=== PATIENT | male | born 1995 | race Caucasian/White ===

== ENCOUNTER 2020-10-27 13:45 | Inpatient (IN) | payer MEDICAID, SELFPAY ==
[2020-10-27 13:53] VITALS: BP 139/91; PULSE 85; RESP 16; TEMP 36.8; O2SAT 99; BMI 22.1
--- NOTE | 2020-10-27 14:18 | PC.NURSE ---
pts belongings were placed in a hospital bag and sat int he copy room next to vertical flow
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
--- NOTE | 2020-10-27 15:08 | PC.NURSE ---
pt states that he can not urinate because I will not let him close the door and be by himself
[2020-10-27 15:11] LABS: Basophils % 0.3 %; Eosinophils # 0.1 10^3/uL (0.0-0.8); Eosinophils % 0.7 %; Hematocrit 47.3 % (42.0-52.0); Hemoglobin 15.7 g/dL (11.7-16.6); Lymphocytes # 1.9 10^3/uL (0.8-4.8); Lymphocytes % 16.3 %; Mean Corpuscular HGB Conc 33.2 g/dL (30.0-36.0); Mean Corpuscular Hemoglobin 29.2 pg (28.0-34.0); Mean Corpuscular Volume 87.9 fL (80-94); Mean Platelet Volume 10.7 fL (7.4-10.4); Monocytes # 0.8 10^3/uL (0.2-0.9); Monocytes % 6.5 %; Neutrophils # 8.82 10^3/uL (1.8-7.7); Neutrophils % 75.9 %; Nucleated Red Blood Cells % 0 %; Platelet Count 242 10^3/cmm (130-400); Red Blood Count 5.38 10^6/uL (4.1-5.3); White Blood Count 11.6 10^3/uL (4.0-10.0)
[2020-10-27 15:48] LABS: Alanine Aminotransferase 6 U/L (0-41); Albumin Level 4.6 g/dL (3.5-5.2); Alkaline Phosphatase 115 IU/L (40-130); Aspartate Amino Transferase 21 U/L (0-40); Blood Urea Nitrogen 7 mg/dL (6-20); Calcium 9.1 mg/dL (8.5-10.5); Carbon Dioxide 25 mmol/L (22-29); Chloride 106 mmol/L (98-107); Globulin 2.3 g/dL (1.3-4.6); Glomerular Filtration Rate 118.8 mL/min (90-130); Glucose 95 mg/dL (65-115); Osmolality Calculated 294 mOsm/kg (285-295); Sodium 143 mmol/L (136-145); Thyroid Stimulating Hormone 0.99 uIU/mL (0.27-4.20); Total Bilirubin 0.4 mg/dL (0.15-1.2); Total Protein 6.9 g/dL (6.6-8.7)
[2020-10-27 15:49] LABS: Acetaminophen < 5.0 ug/mL (10-30); Alcohol Level < 10 mg/dL (0-10); Salicylate < 0.3 mg/dL (3-10)
[2020-10-27 15:50] LABS: Anion Gap 15.7 (5-19); Potassium 3.7 mmol/L (3.5-5.1)
[2020-10-27 16:17] VITALS: BP 122/56; PULSE 78; RESP 17; TEMP 36.7; O2SAT 99
[2020-10-27 16:54] LABS: Amphetamines Screen Urine Negative (Negative); Barbiturates Screen Urine Negative (Negative); Benzodiazepines Screen Urine Positive (Negative); Cocaine Screen Urine Negative (Negative); Opiate Screen Urine Negative (Negative); PCP Screen Urine Negative (Negative); THC Screen Urine Positive (Negative)
[2020-10-27 17:26] VITALS: BP 141/87; PULSE 81; RESP 16; O2SAT 99
--- NOTE | 2020-10-27 17:55 | PC.NURSE ---
This is a 25-year-old male who was brought in by law enforcement on a 96-hour hold. The patient states that he has anger issues and he is mostly able to keep them under wraps but gets to the point that he describes as rage where he is unable to control it. He states that he is not a morning person and when his grandmother is trying to talk to him in the morning it gets him upset because he is unable to tell her to be quiet. He believes he has hormone imbalances especially his serotonin. He has insomnia, he has chronic thoughts of suicide but denies a plan. He states he is not currently suicidal. He denies any homicidal ideation. Patient + Benzos, and THC.
[2020-10-27] MEDS: nicotine 2 mg Gum BUCCAL ×2 (17:58→20:21)
[2020-10-27 20:32] VITALS: BP 119/68; PULSE 75; RESP 17; TEMP 37; O2SAT 99
[2020-10-27] MEDS: trazodone 50 mg Tablet PO ×2 (21:00→22:52)
[2020-10-27] MEDS: hyDROXYzine 25 mg Capsule 50 MG PO (22:52)
--- NOTE | 2020-10-27 23:00 | PC.NURSE ---
The patient has been unable to sleep. Second dose Trazodone 50 mg po given. Vistaril 50 mg po given for anxiety/restlessness.
[2020-10-28 06:00] VITALS: BP 85/48; PULSE 86; RESP 17; TEMP 36.5; O2SAT 96
[2020-10-28] MEDS: nicotine 2 mg Gum BUCCAL ×4 (10:37→21:32)
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
[2020-10-28 13:39] VITALS: BP 118/70; PULSE 89; RESP 15; TEMP 36.8; O2SAT 99
[2020-10-28 21:32] VITALS: BP 115/72
[2020-10-28] MEDS: cloNIDine 0.1 mg Tablet PO (21:32)
[2020-10-28] MEDS: hyDROXYzine 25 mg Capsule 50 MG PO (21:34)
[2020-10-28 22:00] VITALS: BP 115/72; PULSE 65; RESP 18; TEMP 37.1; O2SAT 98
[2020-10-28] MEDS: trazodone 50 mg Tablet PO (22:18)
[2020-10-29 06:00] VITALS: BP 96/57; PULSE 59; RESP 16; TEMP 37; O2SAT 98; BMI 22.1
[2020-10-29] MEDS: nicotine 2 mg Gum BUCCAL ×5 (08:43→21:57)
[2020-10-29 14:00] VITALS: BP 102/62; PULSE 58; RESP 16; TEMP 36.2; O2SAT 98
--- NOTE | 2020-10-29 17:13 | P.PN_ITS ---
Subjective NPU Subjective: Interval history: Compa presents today clonidine did not make him overly sleepy but did assisted him feeling calm and not worked up which did lead to him feeling sleeping came easier. We discussed the risks, benefits and alternatives of increasing the clonidine to twice daily dosing and he understood and agreed to proceed as is documented in this note. Mental Status Exam MSE Comments: This is a slender, diminutive white male with hospital scrubs on with adequate grooming and limited eye contact. No abnormal movements except for mild psychomotor retardation. Cooperative with exam in no acute distress. Speech was decreased rate and volume. Mood described as okay, affect congruent. Thought process organized. Thought content: Patient denied suicidal or homicidal ideation, there are no delusions reported noted, he denied any auditory or visual hallucinations. Attention and concentration were intact and memory appeared reliable but none were formally tested. He is alert and oriented x3. Insight and judgment appear fair and impulse control is limited. Vitals/I&O/Wt Last Vital Signs Temp 98.9 F 10/29/20 21:51 Pulse 117 H 10/29/20 21:51 Resp 18 10/29/20 21:51 BP 111/70 10/29/20 21:51 Pulse Ox 99 10/29/20 21:51 Weight last 48 hrs Weight 68.039 kg Data NPU : 10/27/20 15:00 10/27/20 15:00 A&P Additional A&P Information (1) Suicidal ideation: (2) Difficulty controlling anger: (3) Impulse control disorder, unspecified: (4) Depression: (5) Cannabis abuse: (6) Benzodiazepine abuse: Additional A&P Information This is a 25-year-old white male with a long history of trauma, grief, addiction with difficulty controlling his impulses and aggression who presents open to treatment. 1. Continue current medication. Increase clonidine to 0.1 mg p.o. twice daily. 2. Continue every 15 minute checks for safety. 3. Encourage individual, group and milieu therapies. 4. Encourage sober living treatment after discharge at the highest level of care to which he is willing to commit. Involuntary Hold Information 96 Hour Hold: 96 Hour Involuntary Admission: Yes Attestations NPU Medical Necessity Statement*: Inpatient hospitalization is medically necessary and the clinically appropriate intervention at this time. We will monitor medications and make changes as indicated. Likely length of stay 2-4 days. Coding Level of Care Code Acute Lead Refinery Supervisor for Pineda Rosas
[2020-10-29 21:45] VITALS: BP 111/70
[2020-10-29] MEDS: cloNIDine 0.1 mg Tablet PO (21:45)
[2020-10-29 21:51] VITALS: BP 111/70; PULSE 117; RESP 18; TEMP 37.2; O2SAT 99
[2020-10-29] MEDS: trazodone 50 mg Tablet PO (21:57)
[2020-10-30 06:00] VITALS: BP 115/65; PULSE 76; RESP 18; TEMP 36.9; O2SAT 99
[2020-10-30] MEDS: nicotine 2 mg Gum BUCCAL ×5 (07:50→20:25)
[2020-10-30 08:30] VITALS: BP 115/65
[2020-10-30] MEDS: cloNIDine 0.1 mg Tablet PO (08:30)
[2020-10-30 14:00] VITALS: BP 88/53; PULSE 55; RESP 16; TEMP 36.7; O2SAT 100
--- NOTE | 2020-10-30 14:42 | P.PN_ITS ---
Subjective NPU Subjective: Interval history: Compa presents today reporting things along fairly well in talking with his family and he feels that he will be safe to go home in the morning. He reports clonidine has really been helpful and allowing him to feel calmer and less prone to irritability. He reports he is sleeping a little better. Mental Status Exam MSE Comments: This is a slender, diminutive white male with hospital scrubs on with adequate grooming and limited eye contact. No abnormal movements. Cooperative with exam in no acute distress. Speech was more normal rate and volume. Mood described as better, affect congruent. Thought process organized. Thought content: Patient denied suicidal or homicidal ideation, there are no delusions reported noted, he denied any auditory or visual hallucinations. Attention and concentration were intact and memory appeared reliable but none were formally tested. He is alert and oriented x3. Insight and judgment appear fair and impulse control is limited, but improving. Vitals/I&O/Wt Last Vital Signs Temp 98.0 F 10/30/20 14:00 Pulse 55 L 10/30/20 14:00 Resp 16 10/30/20 14:00 BP 88/53 10/30/20 14:00 Pulse Ox 100 10/30/20 14:00 Weight last 48 hrs Weight 68.039 kg Data NPU : 10/27/20 15:00 10/27/20 15:00 A&P Additional A&P Information (1) Suicidal ideation: (2) Difficulty controlling anger: (3) Impulse control disorder, unspecified: (4) Depression: (5) Cannabis abuse: (6) Benzodiazepine abuse: Additional A&P Information This is a 25-year-old white male with a long history of trauma, grief, addiction with difficulty controlling his impulses and aggression who presents open to tr eatment. 1. Continue current medication. 2. Continue every 15 minute checks for safety. 3. Encourage individual, group and milieu therapies. 4. Encourage sober living treatment after discharge at the highest level of care to which he is willing to commit. 5. Likely plan for discharge tomorrow. Involuntary Hold Information 96 Hour Hold: 96 Hour Involuntary Admission: Yes Attestations NPU Medical Necessity Statement*: Inpatient hospitalization is medically necessary and the clinically appropriate intervention at this time. We will monitor medications and make changes as indicated. Likely length of stay 1-3 days. Coding Level of Care Code Acute Depot Manager for Pineda Rosas
[2020-10-30 20:42] VITALS: BP 146/48; PULSE 71; RESP 15; TEMP 36.7; O2SAT 96
[2020-10-31 05:30] VITALS: BP 100/62; PULSE 55; RESP 15; TEMP 36; O2SAT 99
[2020-10-31 07:13] VITALS: BP 100/62; PULSE 55; RESP 15; TEMP 36; O2SAT 99
[2020-10-31] MEDS: nicotine 2 mg Gum BUCCAL (07:49)
[2020-10-31] MEDS: cloNIDine 0.1 mg Tablet PO (07:49)
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
== END 2020-10-31 10:57 | disposition home or self-care (01) | DRG 886 ==
LOC: ER 14:15 → NP 16:35
PROVIDERS: Nurse Practitioner Family; Admitting Provider Psychiatry & Neurology Psychiatry; Emergency Provider Family Medicine; Visit Provider Psychiatry & Neurology Psychiatry
DX: F63.9 Impulse disorder, unspecified (principal); R45.851 Suicidal ideations; F32.9 Major depressive disorder, single episode, unspecified; F12.10 Cannabis abuse, uncomplicated; F13.10 Sedative, hypnotic or anxiolytic abuse, uncomplicated; G47.00 Insomnia, unspecified
CPT/HCPCS: 80053; 80306; 80307; 84443; 85025; 99285